=== PATIENT | female | born 1955 | race Caucasian/White ===

== ENCOUNTER 2021-11-06 08:38 | Day surgery (SDC) | payer MEDICARE ==
[~2021-11-06 08:38] MED LIST: Lactated Ringers 1,000 ML IV SCH
[2021-11-06] MEDS ORDERED: fentaNYL 100 MCG/2 ML SDV ONE (09:20)
[2021-11-06] MEDS ORDERED: Propofol 200 MG/20 ML SDV ONE ×2 (09:20→10:07)
[2021-11-06] MEDS ORDERED: Lidocaine 2% 5 ML SDV ONE (09:56)
[2021-11-06] MEDS ORDERED: Lactated Ringers 1,000 ML IV SCH (10:45)
== END 2021-11-06 11:25 | disposition home or self-care (01) ==
LOC: MW.SDS 08:38
PROVIDERS: ATTEND Surgery
DX: K57.30 Diverticulosis of large intestine without perforation or abscess without bleeding (principal); K31.89 Other diseases of stomach and duodenum; K29.50 Unspecified chronic gastritis without bleeding; K44.9 Diaphragmatic hernia without obstruction or gangrene; K76.0 Fatty (change of) liver, not elsewhere classified; F41.9 Anxiety disorder, unspecified; F32.A Depression, unspecified; Z85.030 Personal history of malignant carcinoid tumor of large intestine; Z88.8 Allergy status to other drugs, medicaments and biological substances; Z79.899 Other long term (current) drug therapy; Z87.891 Personal history of nicotine dependence; Z90.49 Acquired absence of other specified parts of digestive tract
CPT/HCPCS: 43239; 45378; J2370; J2704; J3010; J7120; 00813; 88305

== ENCOUNTER 2022-04-01 14:10 | Emergency (ER) | payer MEDICARE ==
[2022-04-01] MEDS ORDERED: Sodium Chloride 0.9% 1,000 ML IV ONE (15:18)
[2022-04-01] MEDS: Sodium Chloride 0.9% 10 ML Syringe FLUSH PRN ×2 (15:28→17:53)
[2022-04-01] MEDS: Sodium Chloride 0.9% 2.5 ML Syringe FLUSH PRN ×2 (15:29→17:53)
[2022-04-01 15:42] LABS: CARBON DIOXIDE,CO2 29.2 mmol/L (21.0-32.0); POTASSIUM,K 3.9 mmol/L (3.5-5.1)
[2022-04-01] MEDS ORDERED: Ketorolac 30 MG/ML SDV IVPUSH ONE (16:04)
[2022-04-01] MEDS ORDERED: fentaNYL 50 MCG/ML SDV IVPUSH ONE (16:04)
[2022-04-01] MEDS ORDERED: Ondansetron 4 MG Tab.DIS PO ONE (16:04)
[2022-04-01] MEDS ORDERED: Ondansetron 4 MG/2 ML SDV IVPUSH ONE (16:42)
[2022-04-01] MEDS ORDERED: Iopamidol 755 MG/ML 500 ML Multipack Bottle IVPUSH STA (16:54)
== END 2022-04-01 18:08 | disposition home or self-care (01) ==
LOC: MW.ED 14:10
DX: K83.1 Obstruction of bile duct (principal); K21.9 Gastro-esophageal reflux disease without esophagitis; Z88.0 Allergy status to penicillin; Z79.899 Other long term (current) drug therapy
CPT/HCPCS: 36415; 74177; 80053; 81001; 83690; 85025; 96361; 96374; 96375; 99284; J1885; J2405; J3010; J3490; J7030; Q9967

== ENCOUNTER 2025-06-05 18:22 | Emergency (ER) | payer MEDICARE | END 2025-06-05 20:46 | disposition home or self-care (01) | LOC: MW.ED 18:22 | DX: S60.112A Contusion of left thumb with damage to nail, initial encounter (principal); S60.122A Contusion of left index finger with damage to nail, initial encounter; K21.9 Gastro-esophageal reflux disease without esophagitis; Z88.0 Allergy status to penicillin; Z79.899 Other long term (current) drug therapy; Z79.84 Long term (current) use of oral hypoglycemic drugs; W23.0XXA Caught, crushed, jammed, or pinched between moving objects, initial encounter; Y93.89 Activity, other specified | CPT/HCPCS: 11740; 73130-26-LT; 73130-LT; 99283; 99283-25 ==